=== PATIENT | female | born 1970 | race Caucasian/White ===

== ENCOUNTER → 2016-12-22 | Outpatient (CLI) | payer BC ==
--- NOTE | 2016-12-23 13:03 | KCIC ---
Bilateral digital screening mammograms: Reason for examination: Routine screening. Comparison is made to previous studies dated back to 01/13/2014. The skin and nipples show no abnormalities. No abnormal axillary lymph nodes are seen. The breast parenchyma shows scattered fibroglandular density. (Breast density: Category B.) There are no dominant masses, suspicious calcifications or architectural distortions. Impression: No evidence of malignancy. Recommend routine screening. BI-RADS Category 1: Negative. "Our facility is accredited by the [employer] Mammography [employer]." This patient's information has been entered into a reminder system for the patient to be notified with the results of her examination and a target date for the next mammogram. Electronically signed by: Sondra Woodward MD (12/23/2016 12:59 PM) [facility]
== END | disposition home or self-care (01) ==
LOC: KCIC MAMMO 16:34
PROVIDERS: ATTEND Obstetrics & Gynecology
DX: Z12.31 Encounter for screening mammogram for malignant neoplasm of breast (principal)
CPT/HCPCS: G0202; 77067

== ENCOUNTER → 2017-12-24 | Outpatient (CLI) | payer BC ==
--- NOTE | 2017-12-24 17:07 | KCIC ---
Bilateral digital screening mammograms: Reason for examination: Routine screening. Comparison is made to previous studies dated 12/22/2016 and 12/05/2015. Interpretation was made with the benefit of CAD. The skin and nipples show no abnormalities. No abnormal axillary lymph nodes are seen. The breast parenchyma shows scattered fibroglandular density. (Breast density: Category B.) There are no dominant masses, suspicious calcifications or architectural distortions. Impression: No evidence of malignancy. Recommend routine screening. BI-RADS Category 1: Negative. "Our facility is accredited by the [employer] Mammography [employer]." This patient's information has been entered into a reminder system for the patient to be notified with the results of her examination and a target date for the next mammogram. Electronically signed by: Sondra Woodward MD (12/24/2017 5:03 PM) [facility]
== END | disposition home or self-care (01) ==
LOC: KCIC MAMMO 15:46
PROVIDERS: ATTEND Obstetrics & Gynecology
DX: Z12.31 Encounter for screening mammogram for malignant neoplasm of breast (principal)
CPT/HCPCS: 77067

== ENCOUNTER → 2018-08-24 | Outpatient (CLI) | payer BC ==
--- NOTE | 2018-08-24 16:47 | KCIC ---
CLINICAL HISTORY: Thyromegaly COMPARISON: None available. TECHNIQUE: Ultrasound examination of the thyroid gland was performed FINDINGS: The right thyroid lobe measures 5.6 x 1.7 x 1.3 cm. The left thyroid measures 4.6 x 1.2 x 1.3 cm. The thyroid isthmus measures up to 0.2 cm. Inferior pole the right thyroid there is a 2 x 1.7 x 1.1 cm mixed solid and cystic mildly hypoechoic nodule, with small echogenic reflectors likely calcifications. There is no regional cervical lymphadenopathy. IMPRESSION: The right lower pole thyroid nodule measuring 2 cm is Ti-Rads 4 per classification and therefore FNA is recommended. Electronically signed by: Nico Guevara MD (08/24/2018 4:44 PM) [facility]
== END | disposition home or self-care (01) ==
LOC: KCIC US 15:34
PROVIDERS: ATTEND Family Medicine
DX: E04.1 Nontoxic single thyroid nodule (principal)
CPT/HCPCS: 76536

== ENCOUNTER → 2018-12-27 | Outpatient (CLI) | payer BC ==
--- NOTE | 2018-12-27 17:41 | KCIC ---
Bilateral digital screening mammograms: Reason for examination: Routine screening. Comparison is made to previous studies dated 12/24/2017 and 12/22/2016. Interpretation is made with the benefit of CAD. The skin and nipples show no abnormalities. No abnormal lymph nodes are seen. The breast parenchyma is predominantly fatty. (Breast density: Category A.) There are no dominant masses, suspicious calcifications or architectural distortions. Impression: No evidence of malignancy. Recommend routine screening. BI-RADS Category 1: Negative. "Our facility is accredited by the [employer] Mammography [employer]." This patient's information has been entered into a reminder system for the patient to be notified with the results of her examination and a target date for the next mammogram. Electronically signed by: Sondra Woodward MD (12/27/2018 5:38 PM) [facility]
== END | disposition home or self-care (01) ==
LOC: KCIC MAMMO 16:21
PROVIDERS: ATTEND Obstetrics & Gynecology
DX: Z12.31 Encounter for screening mammogram for malignant neoplasm of breast (principal)
CPT/HCPCS: 77067

== ENCOUNTER → 2019-12-30 | Outpatient (CLI) | payer BC ==
--- NOTE | 2019-12-30 18:32 | KCIC ---
Bilateral digital screening mammograms: Reason for examination: Routine screening. Comparison is made to previous studies dated back to 12/05/2015. Interpretation was made with the benefit of CAD. The skin and nipples show no abnormalities. No abnormal axillary lymph nodes are seen. The breast parenchyma shows scattered fibroglandular density. (Breast density: Category B.) There are no dominant masses, suspicious calcifications or architectural distortions. Impression: No evidence of malignancy. Recommend routine screening. BI-RADS Category 1: Negative. "Our facility is accredited by the [employer] Mammography [employer]." This patient's information has been entered into a reminder system for the patient to be notified with the results of her examination and a target date for the next mammogram. Electronically signed by: Sondra Woodward MD (12/30/2019 6:29 PM) [id number]
== END | disposition home or self-care (01) ==
LOC: KCIC MAMMO 15:52
PROVIDERS: ATTEND Obstetrics & Gynecology
DX: Z12.31 Encounter for screening mammogram for malignant neoplasm of breast (principal)
CPT/HCPCS: 77067